=== PATIENT | female | born 1965 | race Caucasian/White ===

== ENCOUNTER → 2024-03-06 12:50 | Outpatient (REF) | payer BC, SELFPAY | LOC: CLAB 12:50 | PROVIDERS: ATTENDING PHYSICIAN Student in an Organized Health Care Education/Training Program; FAMILY PHYSICIAN Internal Medicine | DX: M25.80 Other specified joint disorders, unspecified joint (principal) | CPT/HCPCS: 88304; 88311 ==

== ENCOUNTER → 2025-01-22 15:12 | Outpatient (REF) | payer BC, SELFPAY | LOC: HWRAD 15:12 | PROVIDERS: ATTENDING PHYSICIAN Nurse Practitioner Family; FAMILY PHYSICIAN Internal Medicine | DX: M81.0 Age-related osteoporosis without current pathological fracture (principal) | CPT/HCPCS: 77080 ==

== ENCOUNTER → 2025-01-30 14:34 | Outpatient (REF) | payer BC, SELFPAY | LOC: RAD 14:34 | PROVIDERS: ATTENDING PHYSICIAN Nurse Practitioner Family; FAMILY PHYSICIAN Internal Medicine | DX: M34.9 Systemic sclerosis, unspecified (principal); E83.59 Other disorders of calcium metabolism | CPT/HCPCS: 73090 ==